=== PATIENT | female | born 1995 | race Caucasian/White ===

== ENCOUNTER → 2019-04-26 | Outpatient (CLI) | payer OTHER ==
--- NOTE | 2019-04-27 07:08 | REP ---
ULTRASOUND LEFT BREAST: Real-time sonographic evaluation of the left breast performed between 9-12 o'clock in the region of a reported palpable abnormality. There is dense fibroglandular tissue in this region by ultrasound. No discrete cystic or solid nodule is seen. IMPRESSION: ACR II benign. Dense fibroglandular tissue in the region of the palpable abnormality between 9-12 o'clock left breast. A negative ultrasound should not deter biopsy if there is a clinically suspicious palpable mass present. There is no discrete cystic or solid mass by ultrasound. Clinical correlation and followup recommended. Electronically Signed by Eliel Wilcox MD 04/27/2019 07:14 P
== END ==
LOC: M RAD 15:04
PROVIDERS: ATTEND Family Medicine
DX: R92.2 Inconclusive mammogram (principal); N63.20 Unspecified lump in the left breast, unspecified quadrant